=== PATIENT | female | born 1985 | race Caucasian/White ===

== ENCOUNTER 2018-05-19 15:52 | Emergency (ER) | payer MEDICAID ==
[~2018-05-19] VITALS: Ht 162.6 cm; Wt 88.5 kg
[~2018-05-19 15:52] MED LIST: LEVO500T47 PO
[2018-05-19 16:01] VITALS: BP 100/71
--- NOTE | 2018-05-19 17:03 | NUR ---
RECEIVED REPORT FROM RUPINDER [place]. CARE ASSUMED. JOSÉ MIGUEL LOUIS AT BEDSIDE FOR EVALUATION. CALL LIGHT IN REACH. FALL PRECAUTIONS IN PLACE.
== END 2018-05-19 17:50 | disposition home or self-care (01) ==
LOC: ED 17:44
DX: O9A.211 Injury, poisoning and certain other consequences of external causes complicating pregnancy, first trimester (principal); R10.32 Left lower quadrant pain; Z3A.17 17 weeks gestation of pregnancy; W00.0XXA Fall on same level due to ice and snow, initial encounter; Y93.89 Activity, other specified; Y92.69 Other specified industrial and construction area as the place of occurrence of the external cause; Y99.0 Civilian activity done for income or pay
CPT/HCPCS: 76815; 99284

== ENCOUNTER 2018-08-23 11:42 | Outpatient (CLI) | payer MEDICAID ==
[~2018-08-23] VITALS: Ht 162.6 cm; Wt 97.7 kg
[2018-08-23 12:11] VITALS: BP 107/53
[2018-08-23 12:20] LABS: MICROSCOPIC NOT IND
== END 2018-08-23 14:10 | disposition home or self-care (01) ==
LOC: LDOP 11:42
PROVIDERS: ATTEND Obstetrics & Gynecology
DX: O26.893 Other specified pregnancy related conditions, third trimester (principal); R10.9 Unspecified abdominal pain; Z3A.31 31 weeks gestation of pregnancy
CPT/HCPCS: 59025; 81003; 87086; 99201; G0463

== ENCOUNTER 2018-09-17 08:04 | Outpatient (CLI) | payer MEDICAID ==
[~2018-09-17] VITALS: Ht 160 cm; Wt 97.7 kg
[2018-09-17 08:50] LABS: MICROSCOPIC NOT IND
== END 2018-09-17 11:07 | disposition home or self-care (01) ==
LOC: LDOP 08:04
PROVIDERS: ATTEND Obstetrics & Gynecology
DX: O36.8130 Decreased fetal movements, third trimester, not applicable or unspecified (principal); Z3A.35 35 weeks gestation of pregnancy
CPT/HCPCS: 59025; 76819; 81003; 89060; 99211; G0463; Q0114

== ENCOUNTER 2018-10-11 23:32 | Inpatient (IN) | payer MEDICAID ==
[~2018-10-11] VITALS: Ht 163.8 cm; Wt 106.8 kg
[2018-10-12 00:05] VITALS: BP 112/67
[2018-10-12] MEDS ORDERED: OXYTOCIN 30U/ 0.9% NaCL 500ML 500 ML IV ONE (01:36)
[2018-10-12] MEDS ORDERED: FENTANYL/BUPIV./NS/PF 250 ML EPIDCONT SCH ×2 (01:38→03:07)
[2018-10-12] MEDS ORDERED: MISOPROSTOL 200 MCG TABLET ONE (01:53)
[2018-10-12] MEDS ORDERED: ONDANSETRON 2MG/ML, 2ML IVPush PRN (02:00)
[2018-10-12] MEDS ORDERED: FENTANYL PF 100 MCG/2ML IV PRN (02:00)
[2018-10-12] MEDS ORDERED: TERBUTALINE 1 MG/ML, 1ML IVPush PRN (02:00)
[2018-10-12] MEDS ORDERED: FENTANYL PF 100 MCG/2ML IVPush PRN (02:00)
[2018-10-12] MEDS: LACTATED RINGERS 1,000 ML IV SCH ×3 (02:01→05:40)
[2018-10-12] MEDS ORDERED: ONDANSETRON 2MG/ML, 2ML ONE (02:08)
[2018-10-12 02:11] LABS: BASOPHILS # (AUTO) 0.03 x10^3/uL (0-0.1); BASOPHILS % (AUTO) 0 % (0-1); EOSINOPHILS # (AUTO) 0.06 x10^3/uL (0-0.4); EOSINOPHILS % (AUTO) 1 % (1-7); LYMPHOCYTES # (AUTO) 3.02 x10^3/uL (1-3.4); LYMPHOCYTES % (AUTO) 29 % (22-44); MD NO; MEAN CORPUSCULAR HEMOGLOBIN 27.5 pg (27.0-34.8); MEAN CORPUSCULAR HGB CONC 32.5 g/dL (32.4-35.8); MEAN CORPUSCULAR VOLUME 84.4 fL (80-100); MEAN PLATELET VOLUME 9.9 fL (7.4-10.4); MONOCYTES # (AUTO) 0.62 x10^3/uL (0.2-0.8); MONOCYTES % (AUTO) 6 % (2-9); NEUTROPHILS # (AUTO) 6.61 x10^3/uL (1.8-6.8); NEUTROPHILS % (AUTO) 64 % (42-75); PLATELET COUNT 249 x10^3/uL (130-400); RED BLOOD COUNT 4.16 x10^6/uL (3.82-5.3); RED CELL DISTRIBUTION WIDTH 16.2 % (9.6-15.2)
[2018-10-12] MEDS ORDERED: LACTATED RINGERS 1,000 ML IV SCH (03:07)
[2018-10-12] MEDS ORDERED: LACTATED RINGERS 1,000 ML IVBOLUS PRN (03:30)
[2018-10-12] MEDS ORDERED: EPHEDRINE 50 MG/ML, 1ML IVPush PRN (03:30)
[2018-10-12] MEDS ORDERED: NALOXONE 0.4 MG/ML, 1ML IVPush PRN (03:30)
[2018-10-12] MEDS ORDERED: METHYLERGONOVINE 0.2 MG/ML IM PRN (05:00)
[2018-10-12] MEDS ORDERED: OXYcodone IR 5MG TABLET PO PRN ×2 (05:00)
[2018-10-12] MEDS ORDERED: ONDANSETRON 2MG/ML, 2ML IV PRN (05:00)
[2018-10-12] MEDS ORDERED: MISOPROSTOL 200 MCG TABLET PR PRN (05:00)
[2018-10-12] MEDS ORDERED: IBUPROFEN 800 MG TABLET ONE (05:41)
[2018-10-12] MEDS ORDERED: OXYTOCIN 30U/ 0.9% NaCL 500ML 500 ML ONE (05:42)
[2018-10-12] MEDS: IBUPROFEN 800 MG TABLET PO PRN ×3 (05:43→21:55)
[2018-10-12] MEDS: OXYTOCIN 30U/ 0.9% NaCL 500ML 500 ML IV SCH ×2 (05:43→14:43)
[2018-10-12 08:05] VITALS: BP 116/68
[2018-10-12] MEDS: PRENATAL VIT/IRON/FA 1 EACH TABLET PO SCH (09:21)
[2018-10-12 12:00] VITALS: BP 121/71
[2018-10-12 12:45] LABS: MEAN CORPUSCULAR HEMOGLOBIN 27.5 pg (27.0-34.8); MEAN CORPUSCULAR HGB CONC 32.5 g/dL (32.4-35.8); MEAN CORPUSCULAR VOLUME 84.6 fL (80-100); MEAN PLATELET VOLUME 9.9 fL (7.4-10.4); PLATELET COUNT 227 x10^3/uL (130-400); RED BLOOD COUNT 4.02 x10^6/uL (3.82-5.3)
[2018-10-12 13:18] LABS: BASOPHILS # (AUTO) 0.03 x10^3/uL (0-0.1); BASOPHILS % (AUTO) 0 % (0-1); EOSINOPHILS % (AUTO) 0 % (1-7); LYMPHOCYTES # (AUTO) 1.46 x10^3/uL (1-3.4); LYMPHOCYTES % (AUTO) 11 % (22-44); MD SCAN; MONOCYTES # (AUTO) 0.61 x10^3/uL (0.2-0.8); MONOCYTES % (AUTO) 4 % (2-9); NEUTROPHILS # (AUTO) 11.85 x10^3/uL (1.8-6.8); NEUTROPHILS % (AUTO) 85 % (42-75)
[2018-10-12 16:16] VITALS: BP 108/62
[2018-10-12 20:20] VITALS: BP 110/71
[2018-10-12 23:50] VITALS: BP 124/67
[2018-10-13] MEDS: OXYTOCIN 30U/ 0.9% NaCL 500ML 500 ML IV SCH ×2 (00:43→10:43)
[2018-10-13 04:09] VITALS: BP 125/78
[2018-10-13 07:55] VITALS: BP 113/72
[2018-10-13] MEDS: IBUPROFEN 800 MG TABLET PO PRN (07:55)
[2018-10-13] MEDS: PRENATAL VIT/IRON/FA 1 EACH TABLET PO SCH (07:56)
[2018-10-13] MEDS ORDERED: IBUP-1222 PO (11:37)
== END 2018-10-13 14:30 | disposition home or self-care (01) | DRG 807 ==
LOC: LDOP 23:32 → LDIP 10-12 01:35 → 2NW 10-12 07:54
PROVIDERS: ADMIT Obstetrics & Gynecology; ATTEND Obstetrics & Gynecology
PROC: 10E0XZZ Delivery of Products of Conception, External Approach (ICD-10-PCS; principal; 2018-10-12)
DX: O80 Encounter for full-term uncomplicated delivery (principal); Z37.0 Single live birth; Z88.0 Allergy status to penicillin; Z3A.39 39 weeks gestation of pregnancy
CPT/HCPCS: 36415; 85025; 86850; 86900; G0378; J2405; J2590; J3010; J7120